=== PATIENT | female | born 1960 | race Caucasian/White ===

== ENCOUNTER 2020-12-18 10:54 | Day surgery (SDC) | payer BC ==
[2020-12-18] VITALS (10 sets, daily range): BP systolic 142–175; BP diastolic 78–91
[~2020-12-18] VITALS: Ht 170.2 cm; Wt 79.7 kg
[2020-12-18] MEDS ORDERED: diphenhydrAMINE 25mg capsule PO PRN (11:30)
[2020-12-18] MEDS ORDERED: normal saline 1,000 ML IV SCH (11:30)
[2020-12-18 11:47] LABS: BASOPHILS % (AUTO) 0.5 % (0-1); EOSINOPHILS # (AUTO) 0.1 X10'3 (0-0.9); EOSINOPHILS % (AUTO) 1.7 % (0-6); HEMATOCRIT 43.5 % (35.0-45.0); HEMOGLOBIN 14.6 g/dl (12.0-16.0); LYMPHOCYTES # (AUTO) 1.4 X10'3 (1.1-4.8); LYMPHOCYTES % (AUTO) 36.9 % (21-51); MEAN CORPUSCULAR HEMOGLOBIN 31.5 PG (27.0-31.0); MEAN CORPUSCULAR HGB CONC 33.7 g/dL (33.0-36.5); MEAN CORPUSCULAR VOLUME 93.7 FL (78-98); MEAN PLATELET VOLUME 7.5 FL (7.4-10.4); MONOCYTES # (AUTO) 0.5 X10'3 (0-0.9); MONOCYTES % (AUTO) 11.9 % (2-12); NEUTROPHILS # (AUTO) 1.9 X10'3 (1.8-7.7); PLATELET COUNT 218 X10'3 (140-440); RED BLOOD COUNT 4.64 X10'6 (4.20-5.60); RED CELL DISTRIBUTION WIDTH 12.9 % (11.5-14.5); WHITE BLOOD COUNT 3.9 X10'3 (4.5-11.0)
[2020-12-18 12:02] LABS: ALBUMIN 3.8 G/DL (3.4-5.0); ANION GAP 11 (8-16); BLOOD UREA NITROGEN 11 MG/DL (7-18); BUN/CREATININE RATIO 13.9 (6.6-38.0); CALCIUM 9.5 MG/DL (8.5-10.1); CHLORIDE 108 MMOL/L (99-107); CREATININE 0.79 MG/DL (0.40-0.90); GLUCOSE 87 MG/DL (70-104); MAGNESIUM 2.1 MG/DL (1.5-2.4); SODIUM 144 MMOL/L (135-145); TOTAL CARBON DIOXIDE 24.9 MMOL/L (24-32); eGFR 74 ML/MIN
[2020-12-18] MEDS ORDERED: AMLO5TAB PO (13:31)
[2020-12-18] MEDS ORDERED: FLEC50TA PO (13:31)
[2020-12-18] MEDS ORDERED: VENL150C2 PO (13:31)
[2020-12-18] MEDS ORDERED: ASPI81TA61 PO (13:31)
[2020-12-18] MEDS ORDERED: HYDR12.55 PO (13:31)
[2020-12-18] MEDS ORDERED: ANAS1TAB24 PO (13:31)
[2020-12-18] MEDS ORDERED: CLON0.2T PO (13:31)
[2020-12-18] MEDS ORDERED: LIDOcaine 1% (10mg/ml)w/preservative injection 20ml MDV ONE (13:50)
[2020-12-18] MEDS ORDERED: iohexol 350 MG/ML 50ML vial IV ONE (13:50)
[2020-12-18] MEDS ORDERED: fentaNYL/PF 50MCG/1 ML 2ML syringe ONE (13:50)
[2020-12-18] MEDS ORDERED: verapamil 2.5 mg/ml inj IV ONE (13:50)
[2020-12-18] MEDS ORDERED: iohexol 350MG/ML 100ml bottle IV ONE (13:50)
[2020-12-18] MEDS ORDERED: midazolam 1 mg/ML 2ml injection ONE ×2 (13:50→14:24)
[2020-12-18] MEDS ORDERED: heparin 1,000unit/ml 10ml vial 10 ML ONE (13:51)
[2020-12-18] MEDS ORDERED: nitroGLYCERIN-Tridil 50MG/D5W 250 ML IV ONE (13:54)
[2020-12-18] MEDS ORDERED: acetaminophen 325mg tablet PO PRN (15:10)
[2020-12-18] MEDS ORDERED: proCHLORperazine 10 MG/2 ml inj IV PRN (15:10)
[2020-12-18] MEDS ORDERED: ondansetron/PF 4mg/2ml inj IV PRN (15:10)
[2020-12-18] MEDS ORDERED: HYDROcodone/acetaminophen 5mg/325mg tablet PO PRN (15:10)
[2020-12-18] MEDS ORDERED: HYDROcodone/acetaminophen 10/325mg tab PO PRN (15:10)
== END 2020-12-18 19:17 | disposition home or self-care (01) ==
LOC: SSTAY O 10:54
PROVIDERS: ATTEND Internal Medicine Cardiovascular Disease
DX: R07.9 Chest pain, unspecified (principal); I48.0 Paroxysmal atrial fibrillation; I10 Essential (primary) hypertension; I47.1 Supraventricular tachycardia; C50.912 Malignant neoplasm of unspecified site of left female breast; F32.9 Major depressive disorder, single episode, unspecified; Z79.899 Other long term (current) drug therapy; Z79.82 Long term (current) use of aspirin; Z90.49 Acquired absence of other specified parts of digestive tract; Z90.710 Acquired absence of both cervix and uterus; Z90.13 Acquired absence of bilateral breasts and nipples; Z98.890 Other specified postprocedural states; Z88.5 Allergy status to narcotic agent; Z88.2 Allergy status to sulfonamides; Z80.9 Family history of malignant neoplasm, unspecified
CPT/HCPCS: 36415; 80048; 83735; 85025; 85610; 93005; 93458; 99152; C1769; C1894; J1644; J2001; J2250; J3010; J7030; Q0163; Q9967; 99153; A4620; A5120; J3490